=== PATIENT | female | born 1955 | race Caucasian/White ===

== ENCOUNTER → 2021-04-24 | Outpatient (CLI) | payer OTHER, MEDICARE ==
[~2021-04-24] MED LIST: CLARITIN10 M3 PO; MELOXICAM15 MG PO; PROAIR HFA8.5 GM INH; VOLTAREN ARTHRI20 GM TOP
[2021-04-24 09:51] LABS: URINE BILIRUBIN NEGATIVE (Negative); URINE BLOOD NEGATIVE (Negative); URINE CLARITY CLEAR; URINE COLOR YELLOW; URINE GLUCOSE-RANDOM* NEGATIVE (Negative); URINE KETONES NEGATIVE (Negative); URINE LEUKOCYTES-REFLEX 1+ (Negative); URINE NITRITE-REFLEX NEGATIVE (Negative); URINE PROTEIN (DIPSTICK) NEGATIVE (Negative); URINE UROBILINOGEN 0.2 E.U./dl (0.2-1.0)
[2021-04-24 10:06] LABS: HEMATOCRIT 40.2 % (37.0-47.0); HEMOGLOBIN 13.2 gm/dL (12.0-15.0); MCH 27.2 pg (26.0-34.0); MCHC 32.9 g/dL (28.0-37.0); MCV 82.6 fL (80.0-100.0); RBC 4.86 mil/uL (4.20-5.00); RDW 14.2 % (10.5-14.5); WBC 6.2 thou/uL (4.0-11.0)
[2021-04-24 10:10] LABS: INR 0.94; PROTIME 10.3 Seconds (10.5-12.1)
[2021-04-24 10:11] LABS: CALCIUM 9.3 mg/dL (8.5-10.1); CREATININE 0.8 mg/dL (0.6-1.0); POTASSIUM 4.2 mmol/L (3.5-5.1)
[2021-04-24 13:43] LABS: BACTERIA-REFLEX None Seen /HPF (None Seen); CASTS None Seen /LPF (None Seen); CRYSTALS None Seen /LPF (None Seen); SQUAMOUS >10 Many /LPF (0-3); URINE RBC None Seen /HPF (NONE SEEN); URINE WBC-REFLEX 0-5 Rare /HPF (0-5)
--- NOTE | 2021-04-25 07:15 | EKG ---
[address] [address] ELECTROCARDIOGRAM REPORT Name: SAMANTHAERIC Sims [id number] Admission: 04/24/21 Attend Phys: Roland Gomez MD Discharge: Date of : 55 Report #: [id number] [facility] Test Date: 2021-04-24 Test Time: 09:52:28 Pat Name: ERIC SINGH Department: Room: Gender: F [employer] Sales Representative: Fito KILLIAN : 1955 Requested By: Roland Gomez Order Number: [id number] : Ron Ortiz Measurements Intervals [place] Rate: 73 P: 80 OH: 144 QRS: 52 QRSD: 84 T: 72 QT: 393 QTc: 433 Interpretive Statements Sinus rhythm Probable left atrial enlargement No previous ECG available for comparison Electronically Signed On 04-25-2021 7:15:38 PLAYGROUND SUPERVISOR by Ron Ortiz [email or web address] <ELECTRONICALLY SIGNED> By: Ron Ortiz MD, [facility] 04/25/21 0715 [id number] Ron Ortiz MD, FACMelissa /EPI
== END ==
LOC: PAC 08:50
PROVIDERS: ATTEND Orthopaedic Surgery
DX: M17.9 Osteoarthritis of knee, unspecified (principal)

== ENCOUNTER 2021-05-01 09:09 | Observation (INO) | payer OTHER, MEDICARE ==
[~2021-05-01] VITALS: Ht 162.6 cm; Wt 116.6 kg
[2021-05-01 11:42] VITALS: BP 152/77
--- NOTE | 2021-05-01 17:01 | NUR ---
ASSUMED CARE OF PT AT 1530 THIS AFTERNOON FROM PACU. PT HAD RT TTL KNEE REPLACEMENT. PT HAS ALDAIR DRESSING, MYRA'S SCD'S AND POLAR PACK IN PLACE. PT IS A/OX4 AND IS ANXIOUS TO GET STARTED MOVING AROUND DUE TO LYING IN THE SAME POSITION. PRIMARY ASSESSMENTS AND CARE PLAN PERFORMED BY RN. MEDS AND TX GIVE NEEDED AND SCEDULED. CALL LIGHT AND OTHER NEEDS ARE IN REACH WITH FALL PRECAUTIONS IN PLACE.WILL MONITOR AND NOTE ANY CHANGES.
[2021-05-01 20:52] VITALS: BP 122/56
--- NOTE | 2021-05-02 06:32 | NUR ---
Pt got up several times to use the bsc. she is voiding well. r knee with ALDAIR vidales c/d/i as well as teds,scds and polar Joey.Continues on IV abts,Afebrile, Good CSM to r foot.Pain managed with prn norco as well as the timed meds.
[2021-05-02 07:45] VITALS: BP 106/57
--- NOTE | 2021-05-02 11:14 | NUR ---
RE-ASSUMED CARE OF PT AT 0700 THIS MORNING. PT IS A/OX4 AND COMPLAINING OF NAUSEA AND A LITTLE ACHING PAIN IN RT KNEE. PT WAS GIVEN ANTIEMETIC AND HYDROCODONE/APAP. ASSESSMENTS NOTED IN CHART AND OTHERWISE UNREMARKABLE. PT IS WORKING WITH ONEIL DIAZ AND WILL BE EVALUATED TO GO HOME. MEDS AND TX GIVEN NEEDED AND SCHEDULED. FALL PRECAUTIONS ARE IN PLACE. CALL LIGHT AND OTHER NEEDS ARE IN REACH. WILL MONITOR AND NOTE ANY CHANGES.
[2021-05-02 13:17] VITALS: BP 106/57
--- NOTE | 2021-05-02 13:29 | NUR ---
Pt is s/p tkr, possible dc later today. Pt has a rwalker for home use and plans to do outpt therapy. She indicates she has an appt for tomorrow. No cm interventions indicated.
--- NOTE | 2021-05-03 11:58 | O ---
[facility] [place] [address] OPERATIVE REPORT Name: ERIC SINGH Room #: 438-P [facility] Luis Garcia#: [id number] Admission: 05/01/21 Attend Phys: Roland Gomez MD Discharge: 05/02/21 Date of : 55 Report #: [id number] THIS REPORT FOR: cc: Justice Berger MD,Justice Gomez,Roland Turcios MD ~ DATE OF SERVICE: 05/01/2021 PREOPERATIVE DIAGNOSIS: Right knee osteoarthritis. POSTOPERATIVE DIAGNOSIS: Right knee osteoarthritis. PROCEDURE: Right total knee arthroplasty using Navio robotic assistance. SURGEON: Roland Gomez MD MOLD YARD WORKER: Estelle Drew PA-C INDICATION FOR MOLD YARD WORKER: Throughout the case, extensive retraction and manipulation of the knee was required. This is supported by my assistant kitchen manager. ANESTHESIA: LMA with adductor canal block. IMPLANTS: [employer] size 5 cobalt chrome Journey II BCS femur, size 4 tibia, size 10 constrained polyethylene, size 32 patella. TOURNIQUET TIME: 58 minutes. ESTIMATED BLOOD LOSS: 25 mL. COMPLICATIONS: None. SPECIMENS: None. CONDITION UPON LEAVING THE OR: Stable. INDICATIONS FOR PROCEDURE: The patient is a 66-year-old female with severe right knee osteoarthritis. She had failed conservative measures for this and after discussion with her, she elected for right total knee arthroplasty. DESCRIPTION OF PROCEDURE: Risks, benefits, alternatives, complications were discussed in detail with the patient including but not limited to risk of anesthesia, risk of damage to nerves, arteries, blood vessels, risk for infection, bleeding, risk for continued knee pain, need for reoperation. Informed consent was obtained from the patient. The right knee was appropriately marked in the preoperative holding area. IV Ancef was given for [address] [address] OPERATIVE REPORT Name: ERIC SINGH Levi Room #: 438-P ZANE Garcia#: [id number] Admission: 05/01/21 Attend Phys: Roland Gomez MD Discharge: 05/02/21 Date of : 55 Report #: [id number] preoperative antibiotics. She was brought to the operating room and placed in supine position on the operating table. LMA anesthesia was induced without complication. Tourniquet was placed on the right thigh. Right lower extremity was prepped and draped in normal sterile fashion. Timeout was performed properly identifying the patient and procedure as well as the instrumentation and implants. All in the operating room in agreement. Right lower extremity was exsanguinated, tourniquet was inflated. Tourniquet time was 58 minutes. Standard midline approach to the knee was made with 10 blade through the skin. Dissection was taken down sharply to the fascia. Deep flaps were developed medially and laterally. Fresh 10 blade was used to make a medial parapatellar arthrotomy and the knee was inspected. There was moderate tricompartmental osteoarthritis. ACL and PCL were removed sharply. Reference pins were placed in the femur and the tibia. The knee was then digitally mapped using the GetBack robotic system. Intraoperative plan was made and we sized to size 5 femur, size 4 tibia and a 10 spacer. After acceptance of the intraoperative plan, the distal femoral cut was made with Navio bur. Distal femoral cutting block was pinned in place and chamfer cuts were made. Attention was turned to the tibia. Remainder of the menisci removed with Bovie cautery. Tibial resection guide was pinned in place using Navio for placement and tibial resection was made. Flexion and extension gaps were checked and found to have good balance in flexion and extension both medially and laterally. Tibia was sized, found to be a size 4. Size 4 tibial trial was placed, pinned and punched. Size 5 femoral trial was placed and box cut was made. This was then trialed with a size 10 polyethylene. Size 10 polyethylene demonstrated 1-2 mm of laxity medially throughout range of motion of the knee. Laterally, she did demonstrate up to 3 mm of laxity, it was felt we could make up for this with a constrained implant, 9 mm of bone was resected from the posterior surface of the patella and a size 32 patellar trial button was placed. Knee was taken through range of motion, found to be stable, found to have good patellar tracking. Trial components were removed. Bone ends were thoroughly irrigated with normal saline. A final size 4 tibia, size 5 Journey II BCS cobalt chrome femur and a size 32 patella were cemented in place using standard cementation techniques. While the cement cured, a periarticular injection consisting of morphine, ropivacaine, epinephrine, Toradol was placed around the knee joint capsule. After the cement cured, the tourniquet was deflated. Hemostasis was obtained with Bovie cautery. A final size 10 constrained polyethylene was placed. A gram of vancomycin was placed deep in the joint. Fascia was closed with 0 Vicryl. Skin was closed with 2-0 Vicryl. Skin staple and a ALDAIR dressing was applied. The patient tolerated this procedure well and went to recovery room under care of anesthesia postoperatively. <ELECTRONICALLY SIGNED> By: Roland Gomez MD 05/03/21 1158 [id number] Roland Gomez MD /nt
== END 2021-05-02 14:15 | disposition home or self-care (01) ==
LOC: OR → 4S 16:14
PROVIDERS: ADMIT Orthopaedic Surgery; ATTEND Orthopaedic Surgery
DX: M17.11 Unilateral primary osteoarthritis, right knee (principal); Z20.822 Contact with and (suspected) exposure to COVID-19; M77.30 Calcaneal spur, unspecified foot; M77.10 Lateral epicondylitis, unspecified elbow; M77.01 Medial epicondylitis, right elbow; M76.61 Achilles tendinitis, right leg; Z79.899 Other long term (current) drug therapy
CPT/HCPCS: 50010; 50101; 50415; 50954; 51130; 51225; 51412; 53000; 53078; 56527; 56528; 57095; 57103; 57110; 57127; 57180; 58239; 59024; 62110; 62900; 64039; 70005